=== PATIENT | male | born 1960 | race Caucasian/White ===

== ENCOUNTER 2018-01-21 13:36 | Emergency (ER) | payer BC ==
--- NOTE | 2018-01-24 09:03 | UC ---
- Progress Note Progress Note: Labs reviewed, Lyme test serology equivocal , western blot pending. Already on doxycycline. No new recommendation. Discharge - Sign-Out/Discharge Documenting (check all that apply): Discharge/Admit/Transfer - Discharge Plan Condition: Stable Disposition: HOME Prescriptions: DOXYcycline CAP(*) [DOXYcycline 100MG CAP(*)] 100 mg PO BID #30 cap Patient Education Materials: Lyme Disease (ED), Tick Bite (ED) Referrals: [facility] [Outside] [facility] [Outside] Additional Instructions: We will call with a positive test for Lyme disease. Other things can cause arthralgia. Follow this up with a family doctor. Her referral line has been provided to you. The [facility] can also follow you up from the ER if he cannot find a family doctor. Return if worse, fevers, new symptoms or other concerns. - Billing Disposition and Condition Condition: STABLE Disposition: Home
--- NOTE | 2018-01-24 19:32 | UC ---
Farhat Ham Rebecca, scribed for Pedrito Gillespie MD on 01/21/18 at 1401 . General HPI - HPI Summary HPI Summary: Pt is a 57 y/o M who presents to [facility] s/p multiple tick bites, requesting Lyme testing. Pt reports that he has had 2 recent tick bites - one on the RUE 9 months ago and one on his RLE a few weeks ago which had been attached for a few hours. States that he has been experiencing fatigue recently, as well as a sore neck ranked 7/10 on triage. Additionally c/o diffuse arthralgias that travel throughout all joints. Denies fever. - History of Current Complaint Chief Complaint: UCGeneralIllness Stated Complaint: WANTS TESTING FOR LYME Time Seen by Provider: 01/21/18 13:43 Hx Obtained From: Patient Onset/Duration: Still Present Current Severity: Moderate Pain Intensity: 7 Pain Location at: Neck Aggravating: Nothing Alleviating: Nothing Associated Signs & Symptoms: Positive: Other - Fatigue, sore neck, arthralgias - Allergy/Home Medications Allergies/Adverse Reactions: Allergies Allergy/AdvReac Type Severity Reaction Status Date / Time No Known Allergies Allergy Verified 01/21/18 13:53 Home Medications: Home Medications Cetirizine* [ZyrTEC 10 MG TAB*] 10 mg PO DAILY 01/21/18 [History Confirmed 01/21] PMH/Surg Hx/FS Hx/Imm Hx - Additional Past Medical History Additional PMH: NEGATIVE PMHx: HTN, DM Respiratory History: Other Other Respiratory History: Seasonal allergies - Surgical History Surgical History: Yes Surgery Procedure, Year, and Place: meniscus repair - Family History Known Family History: Negative: Diabetes - Social History Alcohol Use: Daily Substance Use Type: Marijuana Substance Use Comment - Amount & Last Used: occasional Smoking Status (MU): Former Smoker Review of Systems Constitutional: Fatigue Skin: Negative Eyes: Negative ENT: Negative Respiratory: Negative Cardiovascular: Negative Gastrointestinal: Negative Genitourinary: Negative Motor: Negative Neurovascular: Negative Musculoskeletal: Arthralgia - Diffuse, Other: - Neck pain Neurological: Negative Psychological: Negative All Other Systems Reviewed And Are Negative: Yes - Comments Additional Review of Systems Comments: NEGATIVE: Fever Physical Exam - Summary Physical Exam Summary: Appearance: Well appearing, no pain distress Skin: warm, dry, reflects adequate perfusion, small macula of erythema around a darkened punctum on his right anterior jason from prior tick bite Head/face: normal Eyes: EOMI, TIP ENT: normal Neck: supple, non-tender Respiratory: CTA, breath sounds present Cardiovascular: RRR, pulses symmetrical Musculoskeletal: normal, strength/ROM intact Neuro: normal, sensory motor intact, A&Ox3 Triage Information Reviewed: Yes Vital Signs: Initial Vital Signs Temp 97.5 F 01/21/18 13:48 Pulse 55 01/21/18 13:48 Resp 16 01/21/18 13:48 BP 130/86 01/21/18 13:48 Pulse Ox 100 01/21/18 13:48 Vital Signs Reviewed: Yes Course/Dx - Course Course Of Treatment: Patient with history of tick bites and arthralgias. Tested for Lyme. Prophylacticly started doxycycline. Follow-up for Lyme test result. - Differential Dx - Multi-Symptom Provider Diagnoses: Tick bite, arthralgia, possible Lyme disease Discharge - Sign-Out/Discharge Documenting (check all that apply): Discharge/Admit/Transfer - Discharge - Discharge Plan Condition: Stable Disposition: HOME Prescriptions: DOXYcycline CAP(*) [DOXYcycline 100MG CAP(*)] 100 mg PO BID #30 cap Patient Education Materials: Lyme Disease (ED), Tick Bite (ED) Referrals: [facility] [Outside] [facility] [Outside] Additional Instructions: We will call with a positive test for Lyme disease. Other things can cause arthralgia. Follow this up with a family doctor. Her referral line has been provided to you. The [facility] can also follow you up from the ER if he cannot find a family doctor. Return if worse, fevers, new symptoms or other concerns. - Billing Disposition and Condition Condition: STABLE Disposition: Home The documentation as recorded by the Farhat arias Rebecca accurately reflects the service I personally performed and the decisions made by me, Pedrito Gillespie MD.
== END 2018-01-21 14:12 | disposition home or self-care (01) ==
LOC: UCEAST 13:36
DX: S80.861A Insect bite (nonvenomous), right lower leg, initial encounter (principal); W57.XXXA Bitten or stung by nonvenomous insect and other nonvenomous arthropods, initial encounter; Y93.9 Activity, unspecified; Y92.9 Unspecified place or not applicable; R53.83 Other fatigue; M54.2 Cervicalgia; M25.50 Pain in unspecified joint; Z87.891 Personal history of nicotine dependence
CPT/HCPCS: 36415; 86617; 86618; 86803; 99202; G0463